=== PATIENT | male | born 1955 | race Caucasian/White ===

== ENCOUNTER 2022-12-19 05:45 | Day surgery (SDC) | payer OTHER ==
[~2022-12-19] VITALS: Ht 182.9 cm; Wt 108.9 kg
[2022-12-19] MEDS ORDERED: CEFAZOLIN SOD 1 GM in D5W 50 ML IV ONE (07:00)
[2022-12-19] MEDS ORDERED: ONDANSETRON HCL 4 MG/2 ML VIAL ONE (07:41)
[2022-12-19] MEDS ORDERED: DESFLURANE 15 MIN GAS INH ONE (07:41)
[2022-12-19] MEDS ORDERED: SUGAMMADEX SODIUM 200 MG/2 ML VIAL IV ONE (07:41)
[2022-12-19] MEDS ORDERED: ROCURONIUM BROMIDE 10 MG/ML (ZEMURON) ONE (07:41)
[2022-12-19] MEDS ORDERED: NS IRRIG SOLN 1000 ML IR ONE (07:41)
[2022-12-19] MEDS ORDERED: NS 1000 ML IV.SOLN IV ONE (07:41)
[2022-12-19] MEDS ORDERED: fentaNYL CITRATE 250 MCG/5 ML AMP ONE (07:41)
[2022-12-19] MEDS ORDERED: PROPOFOL 200MG/ 20ML VIAL (DIPRIVAN) IV ONE (07:41)
[2022-12-19] MEDS ORDERED: MIDAZOLAM HCL 5 MG/5 ML VIAL ONE (07:41)
[2022-12-19] MEDS ORDERED: LR 1,000 ML IV.SOLN IV ONE (07:41)
[2022-12-19] MEDS ORDERED: ceFAZolin SODIUM 1 GM VIAL ONE (07:41)
[2022-12-19] MEDS ORDERED: LIDOCAINE JECT 2% PF 100 MG/5ML SYRINGE ONE (07:41)
[2022-12-19] MEDS ORDERED: LABETALOL 100 MG/ 20ML VIAL IVP PRN (08:30)
[2022-12-19] MEDS ORDERED: hydrALAZINE HCL 20 MG/ML VIAL IVP PRN (08:30)
[2022-12-19] MEDS ORDERED: MEPERIDINE HCL/PF 25 MG/ML DISP.SYRIN IVP PRN (08:30)
[2022-12-19] MEDS ORDERED: LR 1,000 ML IV SCH (08:30)
[2022-12-19] MEDS ORDERED: METOCLOPRAMIDE HCL 10 MG/2 ML VIAL IVP PRN (08:30)
[2022-12-19] MEDS ORDERED: HYDROmorphone 1 MG/ML INJ. CARTRIDGE IVP PRN ×2 (08:30)
[2022-12-19] MEDS ORDERED: ACETAMINOPHEN I.V. 1000 MG 100 ML IV ONE (08:44)
[2022-12-19] MEDS ORDERED: D5/0.45 NS 1,000 ML IV SCH (10:00)
[2022-12-19] MEDS ORDERED: HYDROcodone/ACETAMIN 5-325 MG TAB (NORCO/ VICODIN) PO PRN ×2 (10:00)
[2022-12-19] MEDS ORDERED: HYDROmorphone 2 MG/ML VIAL ONE (10:35)
[2022-12-19 13:54] VITALS: BP_SYST 123
== END 2022-12-19 13:12 | disposition home or self-care (01) ==
LOC: SMU 05:45 → SDS 05:45
PROVIDERS: ATTEND Colon & Rectal Surgery
DX: K80.10 Calculus of gallbladder with chronic cholecystitis without obstruction (principal); I10 Essential (primary) hypertension; G47.33 Obstructive sleep apnea (adult) (pediatric); E66.9 Obesity, unspecified; E78.5 Hyperlipidemia, unspecified; E11.42 Type 2 diabetes mellitus with diabetic polyneuropathy; Z68.32 Body mass index [BMI] 32.0-32.9, adult; Z79.82 Long term (current) use of aspirin; Z79.899 Other long term (current) drug therapy; Z20.822 Contact with and (suspected) exposure to COVID-19
CPT/HCPCS: 87081; 47563; 82962; 36415; 74300; 88304; 87426; J3490; J0690; J2250; J2405; J2704; J3010; J1170; Q9967; J7060; J7120; J7030; C1727; J0131; 76000

== ENCOUNTER 2023-09-12 19:40 | Inpatient (IN) | payer OTHER ==
[~2023-09-12] VITALS: Ht 182.9 cm; Wt 99.8 kg
[2023-09-12 19:51] VITALS: BP_SYST 83; PULSE 133; TEMP 96; O2SAT 94
[2023-09-12] MEDS ORDERED: NACL 0.9% 1,000 ML IV ONE (20:15)
[2023-09-12] MEDS ORDERED: ONDANSETRON HCL 4 MG/2 ML VIAL IVP ONE (20:30)
[2023-09-12] MEDS ORDERED: KETOROLAC TROMETHAMINE 15 MG VIAL IVP ONE (20:30)
[2023-09-12 20:42] LABS: BASOPHILS % (AUTO) 0.2 % (0.0-2.0); HEMATOCRIT 41.1 % (36-54); HEMOGLOBIN 13.3 g/dL (14.0-18.0); LYMPHOCYTES # (AUTO) 0.3 K/uL (1.0-5.5); LYMPHOCYTES % (AUTO) 2.1 % (20.5-51.5); MEAN CORPUSCULAR HEMOGLOBIN 27 pg (27-31); MEAN CORPUSCULAR HGB CONC 32 % (32-36); MEAN CORPUSCULAR VOLUME 84 fL (79.0-98.0); MONOCYTES # (AUTO) 0.8 K/uL (0.0-1.0); MONOCYTES % (AUTO) 5.7 % (1.7-9.3); NEUTROPHILS # (AUTO) 13.3 K/uL (1.8-7.7); PLATELET COUNT (AUTO) 178 K/uL (130-430); RED BLOOD CELL COUNT(AUTO) 4.88 MIL/uL (4.2-6.2); RED CELL DISTRIBUTION WIDTH 14.7 % (9.0-15.0); WHITE BLOOD COUNT (AUTO) 14.5 K/uL (4.8-10.8)
[2023-09-12 20:58] LABS: ANION GAP 13 (5-15); CALCIUM 9.5 mg/dL (8.4-11.0); CARBON DIOXIDE 23 mmol/L (23-29); CHLORIDE 103 mmol/L (98-107); CREATININE 1.68 mg/dL (0.55-1.30); GFR AFRICAN AMERICAN 53 mL/min (>90); GLUCOSE 206 mg/dL (74-106); POTASSIUM 3.5 mmol/L (3.5-5.1); SODIUM SERUM 139 mmol/L (136-145); UREA NITROGEN, BLOOD 21 mg/dL (8-21)
[2023-09-12 20:59] LABS: GFR NON AFRICAN-AMERICAN 44 mL/min (>90)
[2023-09-12 21:01] LABS: INR 1.1 (0.80-1.20); PROTHROMBIN TIME 10.9 SECS (9.5-12.5)
[2023-09-12 21:07] LABS: ALANINE AMINOTRANSFERASE 19 U/L (12-78); ALBUMIN 3.6 g/dL (3.4-4.8); ASPARTATE AMINOTRANSFERASE 14 U/L (10-37); BILIRUBIN,DIRECT 0.1 mg/dL (0.0-0.3); TOTAL BILIRUBIN 0.5 mg/dL (0.0-1.0); TOTAL PROTEIN, SERUM 7.7 g/dL (6.4-8.3)
[2023-09-12] MEDS ORDERED: CEFEPIME 1 GM in D5W 50 ML IV ONE (21:45)
[2023-09-12] MEDS ORDERED: NACL 0.9% 2,000 ML IV ONE (21:45)
[2023-09-12] MEDS ORDERED: VANCOMYCIN HCL 1.25 GM/NS 250 ML IV ONE (21:45)
[2023-09-12] MEDS ORDERED: CEFEPIME 1 GM/VIAL (MAXIPIME) ONE (21:56)
[2023-09-12] MEDS ORDERED: VANCOMYCIN HCL 1000 MG/VIAL IV ONE (22:14)
[2023-09-12] MEDS ORDERED: VANCOMYCIN HCL 500 MG/VIAL IV ONE (22:14)
[2023-09-12] MEDS: D5NS 1,000 ML IV SCH (23:00)
[2023-09-12 23:26] LABS: COVID19 ANTIGEN SOFIA FIA NEGATIVE (NEGATIVE)
[2023-09-12 23:51] LABS: INFLUENZA TYPE A Negative (NEGATIVE); INFLUENZA TYPE B NEGATIVE (NEGATIVE)
[2023-09-13] VITALS (21 sets, daily range): BP systolic 97–129; PULSE 63–95; RESP 15–25; TEMP 97.6–98.8; O2SAT 91–98
[2023-09-13] LABS: BILIRUBIN,URINE NEGATIVE (NEGATIVE); CLARITY/URINE SL CLOUDY (CLEAR); COLOR,URINE YELLOW (YELLOW); GLUCOSE,URINE 3+ (NEGATIVE); KETONES,URINE NEGATIVE (NEGATIVE); NITRITE, URINE POSITIVE (NEGATIVE); PROTEIN URINE TRACE (NEGATIVE); UROBILINOGEN,URINE 0.2 (0.2-1.0)
[2023-09-13 00:25] LABS: BLOOD, URINE 1+ (NEGATIVE); LEUKOCYTE ESTERASE ,URINE 1+ (NEGATIVE)
[2023-09-13 00:29] LABS: BACTERIA,URINE MANY /HPF (None Seen); WBC,URINE 80-100 /HPF (0-3)
[2023-09-13 04:46] LABS: BASOPHILS % (AUTO) 0.1 % (0.0-2.0); HEMOGLOBIN 11.3 g/dL (14.0-18.0); LYMPHOCYTES # (AUTO) 1.3 K/uL (1.0-5.5); LYMPHOCYTES % (AUTO) 7.7 % (20.5-51.5); MEAN CORPUSCULAR HEMOGLOBIN 27 pg (27-31); MEAN CORPUSCULAR HGB CONC 31 % (32-36); MEAN CORPUSCULAR VOLUME 84 fL (79.0-98.0); MONOCYTES # (AUTO) 1.4 K/uL (0.0-1.0); MONOCYTES % (AUTO) 8.3 % (1.7-9.3); NEUTROPHILS # (AUTO) 14.3 K/uL (1.8-7.7); NEUTROPHILS % (AUTO) 83.9 % (40.0-70.0); PLATELET COUNT (AUTO) 164 K/uL (130-430); RED BLOOD CELL COUNT(AUTO) 4.26 MIL/uL (4.2-6.2)
[2023-09-13 05:03] LABS: CALCIUM 8.5 mg/dL (8.4-11.0); CREATININE 1.53 mg/dL (0.55-1.30); POTASSIUM 4.2 mmol/L (3.5-5.1)
[2023-09-13] MEDS ORDERED: cefTRIAXone 1 GM IVPB PREMIX 50 ML IV ONE (05:08)
[2023-09-13] MEDS ORDERED: cefTRIAXone 1 GM IVPB PREMIX 50 ML IV SCH (06:00)
[2023-09-13] MEDS ORDERED: VANCOMYCIN HCL 1,000 MG in NS 250 ML IV SCH (10:00)
[2023-09-13] MEDS ORDERED: TAMSULOSIN HCL 0.4 MG CAP PO ONE (10:15)
[2023-09-13] MEDS: PIPERACILLIN/TAZO 2.25G/DEX-IS 50 ML IV SCH ×3 (12:11→23:16)
[2023-09-13] MEDS: D5NS 1,000 ML IV SCH ×3 (13:58→22:24)
[2023-09-13] MEDS ORDERED: METO50TA7 PO (17:02)
[2023-09-13] MEDS ORDERED: METF-518 PO (17:02)
[2023-09-13] MEDS ORDERED: GLIP5TAB13 PO (17:02)
[2023-09-13] MEDS ORDERED: TAMS-11 PO (17:02)
[2023-09-13] MEDS ORDERED: SIMV-343 PO (17:02)
[2023-09-13] MEDS ORDERED: EMPA25TA PO (17:02)
[2023-09-14] VITALS (21 sets, daily range): BP systolic 96–128; PULSE 79–109; RESP 16–30; TEMP 97.6–98.7; O2SAT 92–99
[2023-09-14 04:37] LABS: BASOPHILS % (AUTO) 0.3 % (0.0-2.0); EOSINOPHILS # (AUTO) 0.1 K/uL (0.0-0.4); EOSINOPHILS % (AUTO) 0.6 % (0.0-4.0); HEMATOCRIT 37.3 % (36-54); HEMOGLOBIN 11.9 g/dL (14.0-18.0); LYMPHOCYTES # (AUTO) 1.3 K/uL (1.0-5.5); LYMPHOCYTES % (AUTO) 10.7 % (20.5-51.5); MEAN CORPUSCULAR HEMOGLOBIN 27 pg (27-31); MEAN CORPUSCULAR HGB CONC 32 % (32-36); MEAN CORPUSCULAR VOLUME 83 fL (79.0-98.0); MONOCYTES # (AUTO) 1.1 K/uL (0.0-1.0); MONOCYTES % (AUTO) 9.3 % (1.7-9.3); NEUTROPHILS # (AUTO) 9.6 K/uL (1.8-7.7); NEUTROPHILS % (AUTO) 79.1 % (40.0-70.0); PLATELET COUNT (AUTO) 175 K/uL (130-430); RED BLOOD CELL COUNT(AUTO) 4.47 MIL/uL (4.2-6.2); RED CELL DISTRIBUTION WIDTH 14.5 % (9.0-15.0); WHITE BLOOD COUNT (AUTO) 12.1 K/uL (4.8-10.8)
[2023-09-14 04:51] LABS: CREATININE 1.29 mg/dL (0.55-1.30); POTASSIUM 3.9 mmol/L (3.5-5.1)
[2023-09-14] MEDS: PIPERACILLIN/TAZO 2.25G/DEX-IS 50 ML IV SCH ×3 (06:04→17:21)
[2023-09-14] MEDS: D5NS 1,000 ML IV SCH ×3 (06:54→21:42)
[2023-09-14 08:06] LABS: % FREE PSA 51.4 % (.); FREE PSA 4.83 ng/mL; PROSTATE SPECIFIC AG TOTAL 9.4 ng/mL (0.0-4.0)
[2023-09-14] MEDS: TAMSULOSIN HCL 0.4 MG CAP PO SCH (08:57)
[2023-09-15] MEDS: PIPERACILLIN/TAZO 2.25G/DEX-IS 50 ML IV SCH ×2 (00:53→06:31)
[2023-09-15] MEDS: D5NS 1,000 ML IV SCH (06:31)
[2023-09-15 07:30] VITALS: BP_SYST 132; PULSE 100; RESP 18; TEMP 97.3
[2023-09-15] MEDS: TAMSULOSIN HCL 0.4 MG CAP PO SCH (09:24)
[2023-09-15] MEDS ORDERED: GLUCOSE (DEXTROSE) ORAL GEL -Adults PO PRN (11:15)
[2023-09-15] MEDS ORDERED: DEXTROSE 50% JECT 50 ML DISP.SYRIN IVP PRN (11:15)
[2023-09-15 11:30] VITALS: BP_SYST 123; PULSE 75; RESP 18; TEMP 98.3; O2SAT 98
[2023-09-15] MEDS: INSULIN REGULAR, HUMAN 100 UNITS/ML, 3 ML VIAL (humuLIN R) SUBCUT PRN ×3 (12:34→21:32)
[2023-09-15 16:00] VITALS: BP_SYST 126; PULSE 78; RESP 18; TEMP 98; O2SAT 95
[2023-09-15 20:00] VITALS: BP_SYST 135; PULSE 82; RESP 20; TEMP 98.8; O2SAT 96
[2023-09-15 20:30] VITALS: O2SAT 96
[2023-09-15] MEDS ORDERED: guaiFENesin/DEXTROMETHORPHAN 118 ML PO PRN (22:00)
[2023-09-16 00:21] VITALS: BP_SYST 138; PULSE 82; RESP 18; TEMP 98.3; O2SAT 95
[2023-09-16] MEDS: guaiFENesin/DEXTROMETHORPHAN 10 ML UDC PO PRN ×2 (01:09→11:21)
[2023-09-16 06:10] LABS: BASOPHILS % (AUTO) 0.4 % (0.0-2.0); EOSINOPHILS # (AUTO) 0.2 K/uL (0.0-0.4); HEMATOCRIT 37.5 % (36-54); HEMOGLOBIN 12.2 g/dL (14.0-18.0); LYMPHOCYTES # (AUTO) 1.4 K/uL (1.0-5.5); MEAN CORPUSCULAR HEMOGLOBIN 27 pg (27-31); MEAN CORPUSCULAR HGB CONC 32 % (32-36); MEAN CORPUSCULAR VOLUME 83 fL (79.0-98.0); MONOCYTES # (AUTO) 0.8 K/uL (0.0-1.0); MONOCYTES % (AUTO) 10.4 % (1.7-9.3); NEUTROPHILS # (AUTO) 4.8 K/uL (1.8-7.7); NEUTROPHILS % (AUTO) 67.2 % (40.0-70.0); PLATELET COUNT (AUTO) 216 K/uL (130-430); RED BLOOD CELL COUNT(AUTO) 4.53 MIL/uL (4.2-6.2); RED CELL DISTRIBUTION WIDTH 14.1 % (9.0-15.0); WHITE BLOOD COUNT (AUTO) 7.2 K/uL (4.8-10.8)
[2023-09-16 06:45] LABS: ALBUMIN 2.5 g/dL (3.4-4.8); CALCIUM 9.2 mg/dL (8.4-11.0); CREATININE 0.95 mg/dL (0.55-1.30); POTASSIUM 3.8 mmol/L (3.5-5.1); TOTAL BILIRUBIN 0.2 mg/dL (0.0-1.0); TOTAL PROTEIN, SERUM 6.8 g/dL (6.4-8.3)
[2023-09-16 07:30] VITALS: BP_SYST 134; PULSE 80; RESP 18; TEMP 96.6; O2SAT 96
[2023-09-16] MEDS: TAMSULOSIN HCL 0.4 MG CAP PO SCH (10:00)
[2023-09-16] MEDS: INSULIN REGULAR, HUMAN 100 UNITS/ML, 3 ML VIAL (humuLIN R) SUBCUT PRN ×2 (11:25→17:07)
[2023-09-16 11:30] VITALS: BP_SYST 120; PULSE 95; RESP 18; TEMP 97.5; O2SAT 97
[2023-09-16] MEDS ORDERED: CEPH250C PO (13:35)
[2023-09-16 15:55] VITALS: BP_SYST 120; PULSE 95; RESP 17; TEMP 97.5; O2SAT 97
[2023-09-16 16:00] VITALS: BP_SYST 114; PULSE 88; RESP 18; TEMP 96.7; O2SAT 97
== END 2023-09-16 18:51 | disposition home health service (06) | DRG 871 ==
LOC: SED 19:40 → SIC 22:47 → STU 09-14 12:51 → SMU 09-16 10:46
PROVIDERS: ADMIT Specialist; ATTEND Specialist
DX: A41.9 Sepsis, unspecified organism (principal); R65.21 Severe sepsis with septic shock; N39.0 Urinary tract infection, site not specified; E87.20 Acidosis, unspecified; M87.88 Other osteonecrosis, other site; N17.9 Acute kidney failure, unspecified; Z20.822 Contact with and (suspected) exposure to COVID-19; E11.9 Type 2 diabetes mellitus without complications; I10 Essential (primary) hypertension; E78.5 Hyperlipidemia, unspecified; N40.0 Benign prostatic hyperplasia without lower urinary tract symptoms; I25.10 Atherosclerotic heart disease of native coronary artery without angina pectoris; M16.0 Bilateral primary osteoarthritis of hip; E86.0 Dehydration; B96.1 Klebsiella pneumoniae [K. pneumoniae] as the cause of diseases classified elsewhere; Z90.49 Acquired absence of other specified parts of digestive tract
CPT/HCPCS: 36415; 71045; 73502; 76770; 80048; 80053; 80076; 81000; 81001; 81015; 82962; 83605; 84153; 84484; 85025; 85610-TC; 85730-TC; 87040; 87081; 87086; 93005; 96361; 96365; 96368; 96375; 97110-GP; 97116-GP; 97530-GP; 99291; G0378; J0692; J0696; J1885; J2405; J2543; J3370; J7050; J7060